=== PATIENT | male | born 1985 | race Caucasian/White ===

== ENCOUNTER → 2017-07-03 | Outpatient (CLI) | payer SELFPAY ==
--- NOTE | 2017-07-03 11:06 | Diagnostic Imaging Report ---
PROCEDURE: US abdomen complete. TECHNIQUE: Multiple Real-time grayscale images were obtained over the abdomen in various projections. INDICATION: Lower abdominal pain. Diarrhea. FINDINGS: Please note that there is some limitation to this exam due to the large patient body habitus. The visualized portions of the pancreas appear unremarkable. The liver is fairly homogeneous with no focal lesion. Hepatopetal flow in the portal vein is seen. The gallbladder demonstrates no stones or wall thickening. No pericholecystic fluid. The sonographic Villalba sign is negative. There is no ascites or fluid collection identified. The visualized portion of the abdominal aorta is normal. The visualized portion of the IVC is also normal. The spleen is 14 x 6 x 6.2 cm, mildly enlarged. The right kidney is 10 and the left kidney is 12.5 cm in length. No hydronephrosis or focal lesion is seen in the kidneys. IMPRESSION: Mild splenomegaly. Dictated by: Dictated on workstation # [id number]
--- NOTE | 2017-07-03 14:48 | Diagnostic Imaging Report ---
Supine view of the abdomen. INDICATION: Abdominal pain. COMPARISON: 12/10/15. FINDINGS: There are calcifications seen in the left flank measuring up to 4 mm lateral to the expected renal fossa and probably are related to splenic granulomas. No urinary tract stones are identified. Small to moderate amounts of fecal material noted. IMPRESSION: No urinary tract stones. No dilated bowel loops to suggest obstruction. Dictated by: Dictated on workstation # [id number]
== END ==
LOC: RAD 09:21
PROVIDERS: ATTEND Nurse Practitioner Family
DX: R16.1 Splenomegaly, not elsewhere classified (principal); R19.7 Diarrhea, unspecified; R10.30 Lower abdominal pain, unspecified
CPT/HCPCS: 74000; 76700